=== PATIENT | female | born 1965 | race Caucasian/White ===

== ENCOUNTER 2017-08-15 19:34 | Emergency (ER) | payer SELFPAY ==
[~2017-08-15] VITALS: Ht 154.9 cm; Wt 59.0 kg
[2017-08-16] MEDS ORDERED: IBUPROFEN 600MG TABLET PO ONE (01:00)
[2017-08-16 03:29] LABS: CLARITY URINE CLEAR (CLEAR); COLOR URINE YELLOW (YELLOW); GLUCOSE URINE NEGATIVE (NEGATIVE); KETONES URINE NEGATIVE (NEGATIVE); LEUKOCYTE ESTERASE URINE NEGATIVE (NEGATIVE); NITRITE URINE NEGATIVE (NEGATIVE); OCCULT BLOOD URINE NEGATIVE (NEGATIVE); PROTEIN URINE NEGATIVE (NEGATIVE)
[2017-08-16 04:58] VITALS: BP 126/77
== END 2017-08-16 05:20 | disposition home or self-care (01) ==
LOC: ER 21:33
DX: L90.0 Lichen sclerosus et atrophicus (principal); J06.9 Acute upper respiratory infection, unspecified; F17.200 Nicotine dependence, unspecified, uncomplicated; F12.10 Cannabis abuse, uncomplicated
CPT/HCPCS: 81003; 87210; 99284; Z7610

== ENCOUNTER 2021-10-01 18:59 | Emergency (ER) | payer SELFPAY ==
[~2021-10-01] VITALS: Ht 154.9 cm; Wt 56.0 kg
[2021-10-01] MEDS ORDERED: ACETAMINOPHEN 325MG TABLET PO ONE (19:30)
[2021-10-01] MEDS ORDERED: IBUPROFEN 400MG TABLET PO ONE (19:30)
[2021-10-01] MEDS ORDERED: LIDOCAINE 5% PATCH TOP SCH (19:30)
[2021-10-01] MEDS ORDERED: TOPUD PO (20:27)
[2021-10-01] MEDS ORDERED: IBUP-2028 MT (20:27)
[2021-10-01] MEDS ORDERED: CLOB60CR4 TP (20:28)
[2021-10-01 20:29] VITALS: BP 135/76
[2021-10-01] MEDS ORDERED: CLOBETASOL 0.05 % CREAM 15GM TOP ONE (20:30)
== END 2021-10-01 21:40 | disposition home or self-care (01) ==
LOC: ER 18:59
DX: R07.81 Pleurodynia (principal); L90.0 Lichen sclerosus et atrophicus; N90.4 Leukoplakia of vulva; V49.49XA Driver injured in collision with other motor vehicles in traffic accident, initial encounter; Y93.89 Activity, other specified; Y92.488 Other paved roadways as the place of occurrence of the external cause
CPT/HCPCS: 71046; 93005; 99284